=== PATIENT | male | born 1945 | race Caucasian/White ===

== ENCOUNTER 2019-01-16 08:58 | Inpatient (IN) ==
[2019-01-16 09:47] LABS: URINE SOURCE CLEAN CATCH
[2019-01-16 09:51] LABS: BILIRUBIN URINE SMALL (NEGATIVE); BLOOD URINE SMALL (NEGATIVE); COLOR YELLOW; GLUCOSE URINE NEGATIVE (NEGATIVE); KETONE URINE 10 mg/dL (NEGATIVE); LEUKOCYTES URINE NEGATIVE (NEGATIVE); NITRITE URINE NEGATIVE (NEGATIVE); PH URINE 5.5; PROTEIN URINE 300 mg/dL (NEGATIVE); SP GRAVITY URINE 1.032; TURBIDITY URINE HAZY (CLEAR); UROBILINOGEN URINE 3 mg/dL (NORMAL)
[2019-01-16 09:54] LABS: UR EPITHELIAL CELLS <10 /HPF (<10); URINE BACTERIA NEGATIVE /HPF; URINE RBC <10 /HPF (<10); URINE WBC <10 /HPF (<10)
[2019-01-16 09:54] LABS: BASO# 0.05 X1000 (0.0-0.2); BASO% 0.4 % (0.0-0.8); EOS# 0.28 X1000 (0.0-0.7); EOS% 2.1 % (0.0-10.0); HEMATOCRIT 40.5 % (42.0-52.0); HEMOGLOBIN 13.1 g/dL (14.0-18.0); IMM GRAN# 0.03 X1000 (0.0-0.04); IMM GRAN% 0.2 % (0.0-0.5); LYMPH# 2.03 X1000 (1.2-3.4); LYMPH% 14.9 % (20.5-51.1); MCH 18.3 PG (27-31); MCHC 32.3 g/dL (33-37); MCV 56.6 FL (81-99); MONO# 1.04 X1000 (0.11-0.59); MONO% 7.6 % (1.7-9.3); NEUT# 10.18 X1000 (1.4-6.5); NEUT% 74.8 % (42.2-75.2); PLT 403 X1000 (130-400); RBC 7.15 XMIL (4.7-6.1); RDW 18.8 % (11.5-14.5); WBC 13.61 X1000 (4.8-10.8)
[2019-01-16 10:02] LABS: URINE CASTS GRANULAR PRESENT
--- NOTE | 2019-01-16 10:04 | PROVIDER DOCUMENTATION ---
HPI-Abdominal Pain/GI Problem - General Chief Complaint: Abdominal Pain Stated Complaint: ABD PAIN Time Seen by Provider: 01/16/19 09:13 Source: patient, old records Allergies/Adverse Reactions: Patient Allergies Allergy/AdvReac Type Severity Reaction Status Date / Time No Known Allergies Allergy Verified 01/16/19 09:20 Home Medications: Home Medication List Medication Instructions Recorded Confirmed Last Taken Type Amlodipine Besylate [Norvasc] 2.5 mg PO QHS 01/16/19 01/16/19 01/15/19 History Amlodipine Besylate [Norvasc] 5 mg PO DAILY 01/16/19 01/16/19 01/16/19 History - History of Present Illness-ABD Nature of Presenting Problems: pt w/o PMHx GI med-surg problems (except eve'x age 15) presents w/ cc: abd pain since Sat, took laxative Sun w/ small loose BM (none since), continuous pain, distension, emesis X1 this a.m. no relevant PMHx. reports cervical spondylosis, HBP. Review of Systems - Adult - REVIEW OF SYSTEMS - ADULT Constitutional: reports: no symptoms reported Eyes: reports: no symptoms reported Ears, Nose, Mouth & Throat: reports: no symptoms reported Cardiovascular: reports: no symptoms reported Respiratory: reports: no symptoms reported Gastrointestinal: reports: see HPI, abdominal pain Genitourinary: reports: no symptoms reported Musculoskeletal: reports: no symptoms reported Integumentary: reports: no symptoms reported Neurological: reports: no symptoms reported Psychiatric: reports: no symptoms reported Endocrine: reports: no symptoms reported Hematologic/Lymphatic: reports: no symptoms reported Allergic/Immunologic: reports: no symptoms reported All Other Systems: Reviewed and Negative Past History - Adult - PAST MEDICAL HISTORY-ADULT Review of Records: reports: Old Records Reviewed Physical Exam-General - PHYSICAL EXAM-ADULT Initial Vital Signs Reviewed: Yes - CONSTITUTIONAL General Appearance: appears well, alert, mild distress - EYES Eyes: PERRL/EOMI, pink conjunctivae. negative: sclera injected, scleral icterus - HEAD, EARS, NOSE, MOUTH & THROAT HENMT: normocephalic/atraumatic, moist mucous membranes, normal ENT inspection - NECK Neck: non-tender - RESPIRATORY Respiratory: lungs clear, normal breath sounds - CARDIOVASCULAR Cardiovascular: normal peripheral pulses, regular rate, rhythm - GASTROINTESTINAL (ABDOMEN) Abdominal Exam: abnormal bowel sounds, distended, tenderness. 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, grossly normal, no motor/sensory deficits - PSYCHIATRIC Psych/Mental Status: normal mood/affect, normal thought content Progress - PLAN OF CARE/RESULTS Progress/Plan/Lab Results: Vital Signs - 8 hr 01/16/19 09:06 Temperature 97.6 F Pulse Rate 78 Respiratory Rate 14 Blood Pressure 150/91 O2 Sat by Pulse Oximetry 96 Laboratory Results - last 24 hr 01/16/19 01/16/19 09:30 09:40 WBC 13.61 H RBC 7.15 H Hgb 13.1 L Hct 40.5 L MCV 56.6 L MCH 18.3 L MCHC 32.3 L RDW Std Deviation 18.8 H Plt Count 403 H MPV Not Reportable Immature Gran % (Auto) 0.2 Neut % (Auto) 74.8 Lymph % (Auto) 14.9 L [place] % (Auto) 7.6 Eos % (Auto) 2.1 Baso % (Auto) 0.4 Immature Gran # (Auto) 0.03 Neut # (Auto) 10.18 H Lymph # (Auto) 2.03 [place] # (Auto) 1.04 H Eos # (Auto) 0.28 Baso # (Auto) 0.05 Urine Source CLEAN CATCH Urine Color YELLOW Urine Turbidity HAZY Urine pH 5.5 Ur Specific [place] 1.032 Urine Protein 300 A Ur Glucose (Stick) NEGATIVE Ur Ketones (Stick) 10 A Urine Blood SMALL A Urine Nitrite NEGATIVE Urine Bilirubin SMALL A Urobilinogen Dipstick 3 A Urine Leukocytes NEGATIVE Urine WBC (Auto) <10 Urine RBC (Auto) <10 U Epithel Cells (Auto) <10 Urine Bacteria (Auto) NEGATIVE Orders Category Date Time Status Saline Loc DIRECTED Care 01/16/19 09:13 Active NPO Diet 01/16/19 09:[address] ABD/PELVIS W/IV CONT ONLY [CT] Stat Exams 01/16/19 10:00 Ordered AMYLASE [CHEM] Stat Lab 01/16/19 09:30 Received CBC WITH ELECTRONIC DIFF [HEME] Stat Lab 01/16/19 09:30 Completed COMPREHENSIVE METABOLIC PANEL [CHEM] Stat Lab 01/16/19 09:30 Received LIPASE [CHEM] Stat Lab 01/16/19 09:30 Received URINALYSIS W/POSS RFLX CULT [URINALYSIS] Stat Lab 01/16/19 09:40 Results URINE MANUAL MICROSCOPIC [URINALYSIS] Stat Lab 01/16/19 09:40 Results Result Diagrams: 01/16/19 09:30 01/16/19 09:30 - REASSESSMENT Reassessment #1 Time Reassessed: 13:30 Status: unchanged (CT confirms SBO: will consult for admit; NG suction ordered) - CONSULTS/PCP/HOSPITALIST Notification #1 *Consult/PCP/Hospitalist*: Pawel Consult Disposition: Admit Departure - Departure Date of Disposition Decision: 01/16/19 Time of Disposition Decision: 14:00 DIAGNOSIS: SBO (small bowel obstruction) Disposition: ADMITTED INPATIENT 09 Certified Medical Emergency: Emergent Condition: Stable - Critical Care Note This patient required my direct & personal management of CC.: No Attestation - Physician/ EVE Attestation The physician spent face to face time with patient:: Yes Advanced Practice Provider documentation review:: Supervising physician onsite and consulted in the evaluation and care of this patient. The physician did have a face to face encounter with the patient.
[2019-01-16 10:22] LABS: AGAP 16; ALB/GLOB RATIO 1.7; ALBUMIN 5.3 g/dL (3.5-5.0); ALKALINE PHOSPHATASE 86 U/L (32-122); AMYLASE 47 U/L (20-200); BUN 17 mg/dL (8-22); CALCIUM 10.3 mg/dL (8.8-10.2); CHLORIDE 101 mmol/L (98-107); COSMO 288; ESTIMATED GFR > 60; GLUCOSE 100 mg/dL (70-104); GOT 20 U/L (10-34); GPT 16 U/L (10-44); LIPASE 29 U/L (13-60); POTASSIUM 3.6 mmol/L (3.5-5.1); SODIUM 144 mmol/L (136-145); TCO2 27 mmol/L (25-35); TOTAL BILIRUBIN 1.44 mg/dL (0.20-1.00); TOTAL PROTEIN 8.4 g/dL (6.3-8.3)
--- NOTE | 2019-01-16 11:31 | Diag Imaging Result Doc PS360 ---
EXAM: CT ABD/PELVIS W/IV CONT ONLY 01/16/2019 HISTORY: abd pain/distension/ emesis: ?? SBO TECHNIQUE: This exam was performed using automated exposure control, adjustment of mA or kV according to patient size, and/or use of iterative reconstruction technique. COMMENT: There are no previous studies available for comparison. There is no evidence of acute disease in the visualized portion of the chest. The aorta is not distended. The mesenteric and renal arteries are patent. There are two renal arteries on the left. There are multiple renal cysts present bilaterally. There is no evidence of nephrolithiasis or cholelithiasis. There is no evidence of hydronephrosis or solid renal mass. There are granulomata in the liver and spleen. The pancreas is unremarkable. There is no evidence of significant adenopathy. There are multiple distended small bowel loops. There is some gas and fluid and fecal debris in the colon without evidence of dilatation. The distal small bowel is normal in caliber. There is a gradual change in caliber with a most dramatic transition being around image 129 in the left pelvis. There is diverticulosis coli. Pelvis: There is no evidence of active diverticulitis. There is free fluid in the rectovesical pouch. The urinary bladder is not distended. There are bilateral fat-containing inguinal hernias. IMPRESSION: Partial small bowel obstruction. Electronically signed by David Kumari 01/16/2019 11:29 AM
--- NOTE | 2019-01-16 16:06 | HISTORY AND PHYSICAL ---
PRIMARY CARE PROVIDER: None listed. CHIEF COMPLAINT: Abdominal pain, nausea and vomiting. HISTORY OF PRESENT ILLNESS: Mr. Callejas is a 74-year-old male with a past medical history of hypertension, who presented to the emergency room with complaints of abdominal distention and some nausea and vomiting. He stated the symptoms started yesterday. This morning, he woke up and vomited once. He does not have any history of previous small bowel obstructions. He has had 1 abdominal surgery, an appendectomy. He denies any fever. He does state that he has had some recent constipation. His last bowel movement was yesterday. Evaluation in the emergency room revealed an abdominal pelvis CT that showed a partial small bowel obstruction. LABS: Show an elevated white count at 13.6. His vital signs are within normal limits. He will be admitted for further evaluation and treatment regarding small bowel obstruction. PAST MEDICAL HISTORY: Hypertension. PAST SURGICAL HISTORY: 1. Appendectomy. 2. Cervical spinal fusion. SOCIAL HISTORY: He denies any illicit drug use or alcohol use. He quit smoking in the . FAMILY HISTORY: Bone cancer in his father. REVIEW OF SYSTEMS: Fourteen point review of systems completed and negative, except for those mentioned in the HPI. His current symptoms include abdominal swelling, distention, nausea and vomiting. HOME MEDICATIONS: Norvasc 2.5 mg p.o. at bedtime. ALLERGIES: No known drug allergies. PHYSICAL EXAM: GENERAL: This is a 74-year-old male. He is in no acute distress, sitting up in bed answering questions appropriately. NEURO: He is alert and oriented without focal deficits. Strength is equal bilaterally. HEENT: Head is atraumatic and normocephalic. His pupils are equal, round, reactive to light. NECK: His trachea is midline. There is no JVD. CHEST: Lung sounds are clear bilaterally. Respirations are unlabored. CARDIOVASCULAR: Rate and rhythm are regular. GI: His abdomen is distended. Bowel sounds are hypoactive. EXTREMITIES: There is no edema. SKIN: Warm, dry, and intact. LABS: WBC 13.6, hemoglobin 13.1, hematocrit 40.5, platelets 403. Sodium 144, potassium 3.6, BUN 17 and creatinine 1.0. Calcium 10.3, AST 20, ALT 16, alkaline phosphatase 86. IMAGING: Abdominal pelvis CT reveals partial small bowel obstruction. ASSESSMENT AND PLAN: 1. Small bowel obstruction. We will provide intravenous fluid hydration, nausea and pain management. We will hold off on nasogastric tube as patient is no longer vomiting, and provide a bowel regimen to assist with patient's constipation. 2. Hypertension. We will continue with his previous home medications. 3. Leukocytosis. This is likely reactive. We will not start any antibiotics currently. There is no known source of infection, and he is afebrile. We will repeat labs in the morning. 4. Deep venous thrombosis prophylaxis. Sequential compression devices. Dictated by GABI Leach for Emanuel Bobby MD
--- NOTE | 2019-01-16 16:11 | Diag Imaging Result Doc PS360 ---
CHEST/ABD TUBE PLACEMENT - 01/16/2019 INDICATION: ng tube placement COMPARISON: None FINDINGS: There is a nasogastric tube which is somewhat coiled in the stomach. The tip is probably in the proximal duodenum. IMPRESSION: Nasogastric tube is coiled in the stomach. Tip is probably in the proximal duodenum. Withdrawal by about 10 cm. Electronically signed by Paul Sheppard 01/16/2019 4:09 PM
[2019-01-16] MEDS ORDERED: ZOFRAN IV PRN (16:25)
[2019-01-16] MEDS: NS 1,000 ML IV SCH (17:18)
--- NOTE | 2019-01-16 18:52 | Diag Imaging Result Doc PS360 ---
US ABDOMEN-COMPLETE - 01/16/2019 INDICATION: elevated bilirubin, nausea/vomiting. eval liver/GB COMPARISON: CT with contrast from earlier today FINDINGS: There is extensive bowel gas. The pancreas is mostly obscured. The liver, gallbladder, and both kidneys are normal. There are benign bilateral renal cysts. There is mild splenomegaly. The spleen measures 13.6 x 13.5 x 4.5 cm. Common bile duct measures 5 mm. Aorta, IVC, and main portal vein are patent. IMPRESSION: Splenomegaly. Benign renal cysts. No acute disease. Electronically signed by Paul Sheppard 01/16/2019 6:50 PM
[2019-01-17] MEDS: NS 1,000 ML IV SCH (04:54)
--- NOTE | 2019-01-17 06:37 | Diag Imaging Result Doc PS360 ---
KUB ABDOMEN - 01/17/2019 INDICATION: SBO COMPARISON: 01/16/2019 FINDINGS: There is a nasogastric tube with the tip in the distal duodenum. There has been improvement in the small bowel gas pattern. There is gas throughout the colon and rectum. No evidence of free air. IMPRESSION: 1. Deep placement of a nasogastric tube which is actually well into the duodenum. 2. Improvement in the distention of small bowel loops. Electronically signed by Paul Sheppard 01/17/2019 6:34 AM
[2019-01-17 06:38] LABS: BASO# 0.04 X1000 (0.0-0.2); BASO% 0.5 % (0.0-0.8); EOS% 3.4 % (0.0-10.0); HEMOGLOBIN 10.9 g/dL (14.0-18.0); IMM GRAN# 0.02 X1000 (0.0-0.04); IMM GRAN% 0.2 % (0.0-0.5); LYMPH# 1.45 X1000 (1.2-3.4); LYMPH% 16.4 % (20.5-51.1); MCH 18.8 PG (27-31); MCHC 32.1 g/dL (33-37); MCV 58.6 FL (81-99); MONO% 6.8 % (1.7-9.3); NEUT# 6.44 X1000 (1.4-6.5); NEUT% 72.7 % (42.2-75.2); PLT 307 X1000 (130-400); WBC 8.85 X1000 (4.8-10.8)
[2019-01-17 07:01] LABS: AGAP 14; ALB/GLOB RATIO 1.8; ALBUMIN 4.1 g/dL (3.5-5.0); ALKALINE PHOSPHATASE 67 U/L (32-122); BUN 16 mg/dL (8-22); CALCIUM 8.7 mg/dL (8.8-10.2); CHLORIDE 109 mmol/L (98-107); COSMO 293; CREATININE 0.8 mg/dL (0.7-1.2); ESTIMATED GFR > 60; GLUCOSE 79 mg/dL (70-104); GOT 15 U/L (10-34); GPT 12 U/L (10-44); POTASSIUM 3.2 mmol/L (3.5-5.1); SODIUM 147 mmol/L (136-145); TCO2 24 mmol/L (25-35); TOTAL BILIRUBIN 1.16 mg/dL (0.20-1.00); TOTAL PROTEIN 6.4 g/dL (6.3-8.3)
[2019-01-17] MEDS: COLACE PO SCH (09:24)
[2019-01-17] MEDS ORDERED: KLOR-CON PO ONE (11:17)
[2019-01-17] MEDS ORDERED: MAGNESIUM SULFATE 2 GM/S.W.I. 2 GM/50 ML IVPB IV ONE (11:17)
--- NOTE | 2019-01-17 12:57 | PROGRESS NOTE ---
DATE: 01/17/2019 INTERVAL HISTORY: Mr. Callejas was admitted for small bowel obstruction and had an NG tube placed. His NG tube had about a L which was noted in the morning time. However, since then for about 6 hours, he had almost nil NG tube output and he is feeling better. Denies any nausea or vomiting. SUBJECTIVE: He has not had any more nausea or vomiting. His abdominal pain is better. The abdomen is still a little distended, but he has been passing gas currently. OBJECTIVE: Vital signs: Temperature 97.8 degrees, pulse 77, respiratory rate 20, blood pressure 150/75, and saturating 99% on room air. General: He does not appear in any acute distress. Oral cavity is moist. He has an NG tube under suction. Lungs: Air entry bilaterally equal. No wheeze, rhonchi, or crackles. Cardiovascular: S1, S2 normal. No murmur, rub, or gallop. Abdomen: Distended, soft, and nontender. Active bowel sounds. Tympanic to percussion. Extremities: No lower extremity edema. LABORATORY: Suggestive of resolution of leukocytosis, microcytic anemia with very high RBC count, normal platelet count, hypernatremia, hyperchloremia, hypokalemia, low bicarbonate, elevated total bilirubin and hypocalcemia. Previously, he did have proteinuria, hemoglobinuria, and small bilirubin in the urine with granular cast. No microbiology data. IMAGING: Abdominal x-ray today morning suggests that improvement in the distention of small bowel loops. ASSESSMENT AND PLAN: 1. Acute small bowel obstruction likely because of intraabdominal adhesions which might have formed due to previous surgery of appendectomy. Continue to replete electrolytes, clamp NG tube, and start patient on clear liquid diet. I will follow up with abdominal x-ray tomorrow. 2. Hypernatremia, hyperchloremia and low potassium. Replete electrolytes and stop intravenous fluids. Follow up BMP tomorrow. 3. Microcytic anemia with elevated RBC count likely in the setting of thalassemia minor, currently stable. No need of transfusion at the moment. 4. Essential HTN: Restart home amlodipine. 4. Disposition. Patient remains inside the hospital as we manage small bowel obstruction. Plan of care discussed with him. All of his questions have been answered satisfactorily. cc: MD JENN Granados
[2019-01-17] MEDS: POTASSIUM CHLORIDE 20 MEQ/SWI 20 MEQ/100 ML IVPB IV SCH ×2 (15:06→17:14)
[2019-01-17] MEDS: NORVASC PO SCH (20:27)
[2019-01-18 07:08] LABS: AGAP 10; BUN 9 mg/dL (8-22); CALCIUM 8.6 mg/dL (8.8-10.2); CHLORIDE 105 mmol/L (98-107); COSMO 276; CREATININE 0.6 mg/dL (0.7-1.2); ESTIMATED GFR > 60; GLUCOSE 103 mg/dL (70-104); MAGNESIUM 2.3 mg/dL (1.5-2.7); PHOSPHORUS 1.6 mg/dL (2.7-4.5); POTASSIUM 3.8 mmol/L (3.5-5.1); SODIUM 139 mmol/L (136-145); TCO2 24 mmol/L (25-35)
--- NOTE | 2019-01-18 07:50 | Diag Imaging Result Doc PS360 ---
EXAM: ABDOMEN FLAT/UPRIGHT 01/18/2019 HISTORY: Follow up SBO TECHNIQUE: Flat and upright abdomen COMMENT: There is gas and stool throughout the colon. There are slightly distended small bowel loops with air-fluid levels in the left upper quadrant. There is some gas in the rectum. The NG tube tip is in the third portion of the duodenum. IMPRESSION: Partial small bowel obstruction versus focal ileus in the left upper quadrant. Electronically signed by David Kumari 01/18/2019 7:48 AM
[2019-01-18] MEDS: COLACE PO SCH (09:58)
[2019-01-18] MEDS: NORVASC PO SCH (09:58)
--- NOTE | 2019-01-18 14:34 | PROGRESS NOTE ---
DATE: 01/18/2019 INTERVAL HISTORY: No acute events overnight. He has not had any more vomiting. He has been passing gas. He had a bowel movement yesterday. He wants me to take out the nasogastric tube. I discussed with him that currently his condition remains stable. However, the abdominal x-ray does suggest the presence of possible ileus, which is worse than yesterday, though symptomatically has improved. I discussed with him that if the NG tube is too uncomfortable, I can consider removing it, but I will have to get another x-ray tomorrow and depending on his condition, we might have to reinsert it, which he is reluctant to, but at the moment he is willing to take the nasogastric tube out. OBJECTIVE: Vital signs: Temperature 98 degrees, pulse 71, respiratory 18, blood pressure 156/88, saturating 98% on room air. General: Does not appear in any acute distress. Oral cavity is moist. Lungs: Air entry bilaterally equal. No wheeze, rhonchi, crackles. Cardiovascular: S1, S2 normal. No murmur, rub, or gallop. Abdomen: Nondistended, soft, nontender. Active bowel sounds. Tympanic to percussion. Extremities: No lower extremity edema. He has not had any vomiting. LABORATORY DATA: Suggestive of resolution of hypernatremia and hyperchloremia. Potassium of 3.8, normal kidney function. Phosphorus of 1.8 and magnesium of 2.3. IMAGING: Abdominal x-ray today morning suggestive of partial small-bowel obstruction versus focal ileus of the left upper quadrant. ASSESSMENT AND PLAN: 1. Acute partial small-bowel obstruction with transition point in left lower quadrant because of intraabdominal adhesions which might have formed due to previous surgery of appendectomy versus other reasons. The patient has had a bowel movements overnight. He is passing gas and has been tolerating clear liquid diet with only occasional nausea. Replete phosphorus. Remove NG tube as the patient has been very uncomfortable with it. Continue clear liquid diet. Give stool softeners with lactulose for constipation. Follow up with abdominal x-ray tomorrow. 2. Electrolyte abnormalities including hypophosphatemia, continue to replete. I am holding intravenous fluids at the moment since he is eating clear liquid diet. 3. Microcytic anemia with elevated RBC in the setting of thalassemia minor, currently stable. No need of transfusion. 4. Essential hypertension. Continue home amlodipine. Currently in acceptable range. DISPOSITION: I will follow up with abdominal x-ray tomorrow. If the x-ray looks better and he is not symptomatic, I will advance his diet and we will consider discharging later during the day. If abdominal x-ray looks worse or his symptoms recur, then we might need re-introduction of NG tube and possible surgical evaluation. Plan of care discussed with the patient. All of his questions have been answered. cc: Edgard Ignacio MD
[2019-01-18] MEDS: LACTULOSE PO SCH ×2 (17:04→22:40)
[2019-01-19 06:47] LABS: BASO# 0.03 X1000 (0.0-0.2); BASO% 0.3 % (0.0-0.8); EOS# 0.31 X1000 (0.0-0.7); EOS% 3.2 % (0.0-10.0); HEMATOCRIT 32.4 % (42.0-52.0); HEMOGLOBIN 10.3 g/dL (14.0-18.0); IMM GRAN# 0.02 X1000 (0.0-0.04); IMM GRAN% 0.2 % (0.0-0.5); LYMPH# 1.77 X1000 (1.2-3.4); LYMPH% 18.5 % (20.5-51.1); MCH 18.6 PG (27-31); MCHC 31.8 g/dL (33-37); MCV 58.5 FL (81-99); MONO# 0.91 X1000 (0.11-0.59); MONO% 9.5 % (1.7-9.3); NEUT# 6.53 X1000 (1.4-6.5); NEUT% 68.3 % (42.2-75.2); PLT 302 X1000 (130-400); RBC 5.54 XMIL (4.7-6.1); RDW 16.8 % (11.5-14.5); WBC 9.57 X1000 (4.8-10.8)
[2019-01-19 07:08] LABS: AGAP 13; BUN 9 mg/dL (8-22); CALCIUM 8.5 mg/dL (8.8-10.2); CHLORIDE 107 mmol/L (98-107); COSMO 282; CREATININE 0.9 mg/dL (0.7-1.2); ESTIMATED GFR > 60; GLUCOSE 95 mg/dL (70-104); MAGNESIUM 2.1 mg/dL (1.5-2.7); PHOSPHORUS 2.8 mg/dL (2.7-4.5); POTASSIUM 3.4 mmol/L (3.5-5.1); SODIUM 142 mmol/L (136-145); TCO2 22 mmol/L (25-35)
[2019-01-19] MEDS: COLACE PO SCH (09:29)
[2019-01-19] MEDS: NORVASC PO SCH (09:29)
[2019-01-19] MEDS: LACTULOSE PO SCH (09:30)
--- NOTE | 2019-01-19 09:58 | Diag Imaging Result Doc PS360 ---
EXAM: ABDOMEN FLAT/UPRIGHT INDICATION: Follow up SBO/ileus TECHNIQUE: 3 views COMPARISON: 01/18/2019 FINDINGS: The NG tube has been removed. The mildly distended loops of small bowel with air-fluid levels have essentially resolved during the interval. No large volume free abdominal gas is identified. There are unremarkable colonic gas and stool patterns. IMPRESSION: Essential resolution of the distended small bowel seen on the previous study by plain radiograph. Electronically signed by Jerry River 01/19/2019 9:56 AM
[2019-01-19] MEDS ORDERED: KLOR-CON PO ONE (10:36)
[2019-01-19 11:44] VITALS: BP 134/76
--- NOTE | 2019-01-20 00:08 | DISCHARGE SUMMARY ---
ADMISSION DATE: 01/16/2019 DISCHARGE DATE: 01/19/2019 DISCHARGE DIAGNOSES: 1. Acute partial small bowel obstruction. 2. Hypophosphatemia. 3. Hypokalemia. 4. Microcytic anemia in the case of thalassemia minor. OTHER DIAGNOSES: 1. Essential hypertension. 2. Constipation, 3. History of appendectomy. DISCHARGE MEDICATIONS: 1. Amlodipine 5 mg daily. 2. Docusate sodium 100 mg p.o. daily, 15 tablets have been prescribed. CONSULTATIONS DURING HOSPITALIZATION: None. PHYSICAL EXAMINATION: Vital Signs: At the time of discharge temperature 97.7 degrees, pulse 65, respiratory rate 18, blood pressure 134/76, saturating 100% on room air. General: The patient does not appear in any acute distress. HEENT: Oral cavity is moist. Lungs: Air entry bilaterally equal. No wheeze, rhonchi or crackles. Cardiovascular: S1, S2 normal. No murmur or gallop. Abdomen: Soft and nontender. Active bowel sounds. Not distended. Extremities: No lower extremity edema. SIGNIFICANT LABORATORIES DURING HOSPITAL ADMISSION: On admission he had hemoglobin of 13.6, at the time of discharge it was 9.5. His hemoglobin at the time of discharge was 10.3, platelet of 302,000, potassium of 3.4 which was repleted. BUN of 9, creatinine of 0.9. IMAGING DURING HOSPITAL ADMISSION: Abdomen and pelvis CT on admission had partial small bowel obstruction with transition point in left lower quadrant. Abdominal ultrasound on 01/16/2019 had suggested splenomegaly, benign renal cyst, no acute disease. Abdominal x-ray on 01/19/2019 had suggested essential resolution of distended small bowel on previous study. HOSPITAL COURSE SUMMARY: Mr. Callejas is a 74-year-old man who came in on 01/16/2019 with chief complaints of abdominal pain, nausea and vomiting ongoing for about 1 day's duration. He woke up in the morning and had 1 episode of vomiting. He previously did not have any history of small bowel obstruction, though he previously had appendectomy many years ago. He did not have any fevers or chills, though he did have some recent constipation. His last bowel movement was 24 hours prior to presentation. At the emergency room, abdominal pelvis CT scan had been ordered which had showed partial small bowel obstruction with transition point in the left lower quadrant. NG tube was placed for the patient's vomiting, and he was started with intermittent suction with removal of about 1 L of output after which he had started feeling better. The next day his nausea and vomiting had subsided and he was feeling fine and was started on ice chips, which he tolerated, which was advanced to clear liquid diet. Later on the patient was able to tolerate clear liquid diet, so nasogastric tube had been removed and he was advanced to have a GI soft diet. Following the diet the patient did not have any nausea or vomiting. He did not have any abdominal pain. He kept on having good bowel sounds. He was able to pass gas and he has had multiple bowel movements during hospital stay, so he was deemed appropriate for discharge. The patient was advised to continue taking stool softeners to avoid constipation. Follow up with his regular doctor. All of his questions at the time of discharge were answered. 30 minutes were spent in preparing this discharge summary. cc: Edgard Ignacio MD MTDD
== END 2019-01-19 15:33 | disposition home or self-care (01) | DRG 389 ==
LOC: ED 08:58 → 4N 15:23 → SUATTDRO 15:23
PROVIDERS: ATTEND Internal Medicine
CPT/HCPCS: 74000; 74018; 74019; 74020; 74177; 76700; 80048; 80053; 81001; 82150; 83690; 83735; 84100; 85025; 99285; A9270; J3475; J3480; J7030; J7050; Q9967